=== PATIENT | female | born 1970 | race Caucasian/White ===

== ENCOUNTER 2018-11-20 16:57 | Emergency (ER) | payer MEDICAID ==
[~2018-11-20] VITALS: Ht 170.2 cm; Wt 63.5 kg
--- NOTE | 2018-11-20 17:07 | NUR ---
at bedside to see patient.
--- NOTE | 2018-11-20 18:50 | NUR ---
DCD instructions given to pt. pt. left room AAOx4. Vitals signs stable.
== END 2018-11-20 18:56 | disposition home or self-care (01) ==
LOC: ER 16:57
DX: K04.7 Periapical abscess without sinus (principal); M79.621 Pain in right upper arm; F17.200 Nicotine dependence, unspecified, uncomplicated; Z88.0 Allergy status to penicillin; Z88.8 Allergy status to other drugs, medicaments and biological substances; X58.XXXA Exposure to other specified factors, initial encounter; Y93.89 Activity, other specified; Y92.89 Other specified places as the place of occurrence of the external cause; Y99.8 Other external cause status
CPT/HCPCS: 73060; A4663

== ENCOUNTER 2018-12-31 05:38 | Emergency (ER) | payer MEDICAID ==
[~2018-12-31] VITALS: Ht 167.6 cm; Wt 60.3 kg
[2018-12-31] MEDS ORDERED: ONDANSETRON ODT 4 MG TAB.RAPDIS ONE (06:09)
[2018-12-31] MEDS ORDERED: HYDROCODONE/APAP 10-325 MG TABLET ONE (06:09)
[2018-12-31] MEDS ORDERED: PENICILLIN G BENZATHINE 2.4 MMU/4 ML DISP.SYRIN IM ONE ×2 (06:10→06:15)
[2018-12-31] MEDS ORDERED: HYDROCODONE/APAP 10-325 MG TABLET PO ONE (06:15)
[2018-12-31] MEDS ORDERED: ONDANSETRON ODT 4 MG TAB.RAPDIS SL ONE (06:15)
--- NOTE | 2018-12-31 06:22 | NUR ---
Patient discharged to home in stable conditon. Written and verbal after care instructions given. Patient verbalizes understanding of instructions. Pt ambulated out of ER in stable gait. No acute distress noted. All belongings w pt. VSS. Pt's to drive pt home.
[2018-12-31 06:23] VITALS: BP 119/74
== END 2018-12-31 06:23 | disposition home or self-care (01) ==
LOC: ER 05:40
DX: K08.89 Other specified disorders of teeth and supporting structures (principal); F17.290 Nicotine dependence, other tobacco product, uncomplicated; Z71.6 Tobacco abuse counseling; Z88.8 Allergy status to other drugs, medicaments and biological substances
CPT/HCPCS: A4663; Q0162

== ENCOUNTER 2019-01-16 09:51 | Emergency (ER) | payer MEDICAID ==
[~2019-01-16] VITALS: Ht 165.1 cm; Wt 61.2 kg
[2019-01-16] MEDS ORDERED: ONDANSETRON ODT 4 MG TAB.RAPDIS SL ONE (10:15)
[2019-01-16] MEDS ORDERED: HYDROCODONE/APAP 10-325 MG TABLET PO ONE (10:15)
[2019-01-16] MEDS ORDERED: HYDROCODONE/APAP 10-325 MG TABLET ONE (10:18)
[2019-01-16] MEDS ORDERED: ONDANSETRON 4 MG/2 ML VIAL ONE (10:19)
[2019-01-16] MEDS ORDERED: ONDANSETRON ODT 4 MG TAB.RAPDIS ONE (10:20)
--- NOTE | 2019-01-16 10:25 | NUR ---
PT WAS EVALUATED BY DR PARNELL. PT WAS D/C'd TO HOME. D/C INSTRUCTIONS GIVEN TO THE PT.
[2019-01-16 10:27] VITALS: BP 131/78
[2019-01-17] MEDS ORDERED: HYDROCODONE-ACETAMIN 5-325 MG (01:39)
[2019-01-17] MEDS ORDERED: [UNRECOGNIZED DRUG - REMARK] (01:39)
== END 2019-01-16 10:30 | disposition home or self-care (01) ==
LOC: ER 09:51
DX: K08.89 Other specified disorders of teeth and supporting structures (principal); L73.9 Follicular disorder, unspecified; L03.113 Cellulitis of right upper limb; F17.200 Nicotine dependence, unspecified, uncomplicated; Z88.8 Allergy status to other drugs, medicaments and biological substances
CPT/HCPCS: A4663; J2405; Q0162

== ENCOUNTER 2019-01-17 01:29 | Inpatient (IN) | payer MEDICAID ==
[~2019-01-17] VITALS: Ht 165.1 cm; Wt 64.0 kg
[2019-01-17] MEDS ORDERED: [UNRECOGNIZED DRUG - REMARK] (01:39)
[2019-01-17] MEDS ORDERED: HYDROCODONE-ACETAMIN 5-325 MG (01:39)
[2019-01-17] MEDS ORDERED: LORAZEPAM 2 MG/1 ML VIAL IV ONE (02:00)
[2019-01-17] MEDS ORDERED: ONDANSETRON 4 MG/2 ML VIAL IV ONE (02:00)
[2019-01-17] MEDS ORDERED: VANCOMYCIN IV 1,000 MG in IV DEXTROSE 5% 250 ML IV ONE (02:00)
[2019-01-17] MEDS ORDERED: SODIUM BICARBONATE 4.2 % (NEUT) 5 ML VIAL TP ONE (02:00)
[2019-01-17] MEDS ORDERED: LIDOCAINE 1%-EPI 1:100,000 20 ML VIAL TP ONE (02:00)
[2019-01-17] MEDS ORDERED: HYDROMORPHONE 1 MG/1 ML DISP.SYRIN IV ONE (02:00)
[2019-01-17] MEDS ORDERED: LORAZEPAM 2 MG/1 ML VIAL ONE (02:26)
[2019-01-17] MEDS ORDERED: HYDROMORPHONE 1 MG/1 ML DISP.SYRIN ONE (02:26)
[2019-01-17] MEDS ORDERED: ONDANSETRON 4 MG/2 ML VIAL ONE (02:26)
[2019-01-17] MEDS ORDERED: VANCOMYCIN IV 200 ML ONE (02:37)
[2019-01-17 02:44] LABS: BASOPHILS # (AUTO) 0.1 K/uL (0.0-8.0); BASOPHILS % (AUTO) 0.5 % (0.0-2.0); EOSINOPHILS # (AUTO) 0.3 K/uL (0.0-0.7); EOSINOPHILS % (AUTO) 2.2 % (0.0-7.0); HEMATOCRIT 40.8 % (31.2-41.9); HEMOGLOBIN 13.6 g/dL (10.9-14.3); LYMPHOCYTES # (AUTO) 1.5 K/uL (20.0-40.0); LYMPHOCYTES % (AUTO) 12.6 % (20.5-51.5); MEAN CORPUSCULAR HEMOGLOBIN 29.6 uug (24.7-32.8); MEAN CORPUSCULAR HGB CONC 33 g/dL (32.3-35.6); MEAN CORPUSCULAR VOLUME 88.6 fL (75.5-95.3); MONOCYTES # (AUTO) 0.6 K/uL (2.0-10.0); MONOCYTES % (AUTO) 5.3 % (0.0-11.0); NEUTROPHILS # (AUTO) 9.5 K/uL (1.8-8.9); NEUTROPHILS % (AUTO) 79.4 % (38.5-71.5); PLATELET COUNT (AUTO) 193 K/uL (179-408)
--- NOTE | 2019-01-17 02:51 | NUR ---
Paged [employer] panel labor relations manager. Waitng for Viral Monte DOWEL MAKER to call back
--- NOTE | 2019-01-17 02:59 | NUR ---
Dr Amos speaking with Viral Monte NP
[2019-01-17] MEDS ORDERED: HYDROMORPHONE 1 MG/1 ML DISP.SYRIN IV PRN (03:00)
[2019-01-17] MEDS ORDERED: ONDANSETRON 4 MG/2 ML VIAL IV PRN (03:00)
[2019-01-17] MEDS ORDERED: ACETAMINOPHEN 325 MG TABLET PO PRN (03:00)
[2019-01-17] MEDS ORDERED: MAGNESIUM HYDROXIDE 30 ML LIQUID UDC PO PRN (03:00)
[2019-01-17] MEDS ORDERED: HYDROCODONE/APAP 10-325 MG TABLET PO PRN (03:00)
[2019-01-17 03:08] LABS: BILIRUBIN,TOTAL 0.5 mg/dL (0.2-1.0); CREATININE 0.9 mg/dL (0.6-1.3); POTASSIUM 3.5 mmol/L (3.5-5.1); TOTAL PROTEIN, SERUM 6.3 g/dL (6.4-8.2)
--- NOTE | 2019-01-17 03:18 | NUR ---
Correction Ativan IV, Zofran IV, and Dilaudid IV given via LHand 20G IV site.
--- NOTE | 2019-01-17 03:18 | NUR ---
Report given to Mira
--- NOTE | 2019-01-17 03:39 | NUR ---
RECEIVED REPORT FROM ARSALAN IN ER
[2019-01-17 03:45] VITALS: BP 100/69
--- NOTE | 2019-01-17 04:00 | NUR ---
Patient transfered to MT in stable condition.
--- NOTE | 2019-01-17 04:30 | NUR ---
RECEIVED PATIENT FROM ER. UNABLE TO OBTAIN ANY HISTORY INFORMATION DUE TO MEDICATIONS PATIENT RECEIVED FOR AXILLARY CYST DRAINAGE PERFORMED IN ED. PATIENTS VS ARE WNL AND PATIENT IS STABLE. BEGAN IV NS @ 75 ML/HR ORDERED. CALL LIGHT WITHIN REACH AT ALL TIMES. 2 SIDE RAILS UP AND LOCKED. BED IN LOW POSITION AND BRAKE IS LOCKED. WILL CONTINUE TO MONITOR.
[2019-01-17] MEDS: IV NS 1000 ML 1,000 ML IV PRN ×2 (04:34→18:17)
[2019-01-17] MEDS: PANTOPRAZOLE SODIUM 40 MG TABLET.DR PO SCH (06:34)
--- NOTE | 2019-01-17 06:35 | NUR ---
PATIENT IS EXTREMELY LETHARGIC AND UNABLE TO TAKE SCHEDULED PROTONIX.
[2019-01-17 07:46] VITALS: BP 101/65
--- NOTE | 2019-01-17 10:01 | NUR ---
Nurse Notes: medications given in emergency room, not assessed on night shigt, patient arrived to floor around 3 am, medications given in ER was zofran, dilaudid and ativan.
[2019-01-17 11:32] VITALS: BP 104/62
--- NOTE | 2019-01-17 13:22 | NUR ---
Clinical Pharmacy Note: Vancomycin Dosing per Pharmacy Subjective: Vancomycin IV to start on this 48 yo female patient for abscess/cellulitis of right axilla. Objective: BUN 12/Scr 0.9 WBC 12 Temperature 98 ht 165 cm wt 6.39 kg Assessment/Plan: Patient received vanco 1gm IVPB x1 today at 0300. Will start vancomycin 1000mg IVPB Q15hr for a predicted vancomycin steady state trough level of 16 mcg/ml. 2nd dose today at 1800. Will draw a vancomycin trough level prior to the 4th dose of vancomycin (not ordered yet). Will monitor renal function and adjust vancomycin dose, if needed, should renal function change significantly. Will follow daily.
--- NOTE | 2019-01-17 13:30 | NUR ---
Nurse Notes: patient remains sleeping, in no respiratory distress, no request for pain medications, IV is infusing continuously.
[2019-01-17 15:49] VITALS: BP 99/68
[2019-01-17] MEDS: HYDROMORPHONE 1 MG/1 ML DISP.SYRIN IV PRN ×2 (18:32→22:12)
--- NOTE | 2019-01-17 18:32 | NUR ---
Nurse Notes: Patient awakened and asking for pain medication, Dilaudid .5 mg IV was given, patient felt some nausea coming on, patient then went back to sleeping. Zofran IV was not given.
[2019-01-17] MEDS: VANCOMYCIN IV 1 G in PREMIXED 0 EACH IV SCH (18:38)
[2019-01-17 18:45] VITALS: BP 94/66
--- NOTE | 2019-01-17 20:00 | NUR ---
RECEIVED PATIENT ASLEEP IN BED. IVF INFUSING WELL TO LEFT HAND #20 GAUGE. VSS. NO RESP. DISTRESS NOTED. NO S/S OF PAIN OR DISCOMFORT. NO FACIAL GRIMACE NOTED. CALL LIGHT IN REACH. ALL NEEDS ATTENDED. WILL CONTINUE TO MONITOR AND ASSESS.
[2019-01-17 20:11] VITALS: BP 98/59
[2019-01-17] MEDS: TEMAZEPAM 15 MG CAPSULE PO SCH (20:54)
--- NOTE | 2019-01-17 21:00 | NUR ---
PATIENT ASLEEP. RESTORIL NOT GIVEN. PATIENT EASILY AROUSABLE BUT QUICKLY FALLS BACK ASLEEP. WILL CONTINUE TO MONITOR AND ASSESS.
[2019-01-17] MEDS ORDERED: PIPERACILLIN/TAZOBACTAM/D5W 100 ML IV ONE (21:35)
[2019-01-17] MEDS: PIPERACILLIN/TAZOBACTAM/D5W 3.375 G in PREMIXED 1 EACH IV SCH (22:02)
[2019-01-18] MEDS: HYDROMORPHONE 1 MG/1 ML DISP.SYRIN IV PRN ×4 (02:25→19:38)
[2019-01-18 04:00] VITALS: BP 99/56
[2019-01-18] MEDS: PIPERACILLIN/TAZOBACTAM/D5W 3.375 G in PREMIXED 1 EACH IV SCH ×3 (05:25→22:40)
[2019-01-18] MEDS ORDERED: HYDROMORPHONE 1 MG/1 ML DISP.SYRIN ONE (06:04)
[2019-01-18] MEDS: PANTOPRAZOLE SODIUM 40 MG TABLET.DR PO SCH (06:18)
--- NOTE | 2019-01-18 06:25 | NUR ---
PATIENT PULLED OUT IV. NEW IV HEPLOCK STARTED TO LEFT FA #20 GAUGE. PATIENT C/O PAIN IN RIGHT AXILLARY, GIVEN DILAUDID 0.5MG IV PRN PER RN. SLEPT WELL. IVF INFUSING WELL. CALL LIGHT IN REACH. ALL NEEDS ATTENDED. WILL CONTINUE TO MONITOR AND ASSESS.
[2019-01-18 06:50] LABS: BASOPHILS # (AUTO) 0.1 K/uL (0.0-8.0); EOSINOPHILS # (AUTO) 0.4 K/uL (0.0-0.7); EOSINOPHILS % (AUTO) 3.9 % (0.0-7.0); HEMATOCRIT 37.5 % (31.2-41.9); HEMOGLOBIN 12.6 g/dL (10.9-14.3); LYMPHOCYTES # (AUTO) 2.2 K/uL (20.0-40.0); LYMPHOCYTES % (AUTO) 22.2 % (20.5-51.5); MEAN CORPUSCULAR HEMOGLOBIN 29.8 uug (24.7-32.8); MEAN CORPUSCULAR HGB CONC 34 g/dL (32.3-35.6); MEAN CORPUSCULAR VOLUME 88.9 fL (75.5-95.3); MONOCYTES # (AUTO) 0.7 K/uL (2.0-10.0); MONOCYTES % (AUTO) 7.3 % (0.0-11.0); NEUTROPHILS # (AUTO) 6.5 K/uL (1.8-8.9); NEUTROPHILS % (AUTO) 65.6 % (38.5-71.5); PLATELET COUNT (AUTO) 169 K/uL (179-408); RED BLOOD CELL COUNT(AUTO) 4.22 MIL/uL (3.63-4.92); WHITE BLOOD COUNT (AUTO) 9.9 K/uL (3.8-11.8)
[2019-01-18 07:05] LABS: CREATININE 0.7 mg/dL (0.6-1.3); MAGNESIUM 1.8 mg/dL (1.8-2.4); PHOSPHOROUS 2.8 mg/dL (2.5-4.9); POTASSIUM 3.6 mmol/L (3.5-5.1)
--- NOTE | 2019-01-18 07:15 | NUR ---
RECEIVED PATIENT ON BED, ASLEEP NO ACUTE DISTRESS NOTED. IV ACCESS ON LEFT FOREARM #20 INTACT AND PATENT RUNNING NS @ 75CC/HR INFUSING WELL. RUE KEPT ELEVATED. PATIENT APPEARS COMFORTABLE AT THIS TIME. CALL LIGHT WITHIN REACH. WILL CONTINUE TO MONITOR CLOSELY.
[2019-01-18] MEDS: VANCOMYCIN IV 1 G in PREMIXED 0 EACH IV SCH ×2 (08:43→20:43)
--- NOTE | 2019-01-18 09:58 | NUR ---
PATIENT WILL BE BOTH ON VANCOMYCIN AND ZOSYN, WHICH ARE NOT COMPATIBLE, ADVISED TO INSERT ANOTHER IV LINE, PER [facility] PHARMACIST. INSERTED ANOTHER IV SITE ON LEFT FOREARM #22, SALINE LOCKED, GOOD VENOUS RETURN NOTED. WILL CONTINUE TO MONITOR CLOSELY.
[2019-01-18] MEDS: IV NS 1000 ML 1,000 ML IV PRN (09:59)
--- NOTE | 2019-01-18 10:00 | NUR ---
APPLIED WARM COMPRESS AND KEPT RIGHT UPPER ARM ELEVATED, ORDERED. WILL CONTINUE TO MONITOR CLOSELY.
[2019-01-18 11:40] VITALS: BP 94/57
--- NOTE | 2019-01-18 12:52 | NUR ---
Clinical Pharmacy Note: Vancomycin Dosing per Pharmacy Subjective: Vancomycin IV to continue on this 48 yo female patient for abscess/cellulitis of right axilla. Objective: BUN 11/Scr 0.7 WBC 9.9 Temperature 98.1 ht 165 cm wt 6.39 kg Assessment/Plan: Since srcr decreased, will change dose to vancomycin 1000mg IVPB Q12hr for a predicted vancomycin steady state trough level of 16 mcg/ml. 2nd dose today at 2100. Will draw a vancomycin trough level prior to the 4th dose of vancomycin (not ordered yet). Will monitor renal function and adjust vancomycin dose, if needed, should renal function change significantly. Will follow daily.
--- NOTE | 2019-01-18 12:56 | NUR ---
WOUND CARE CONSULT: PT PRESENTS WITH RT AXILLA PACKING STRIP, S/P I&D IN E.R. RECOMMEND SURGICAL FOLLOWUP. PT REFUSED TO HAVE PACKING REMOVED DURING CONSULT. RECOMMENDATIONS MADE FOR WOUND CARE AND SKIN PROTECTION. DISCUSSED WITH NURSING STAFF. WILL SEE PRN. Addendum: 01/18/19 at 1258 by SRAVANTHI HINDS RN Amended: Links added.
--- NOTE | 2019-01-18 15:19 | NUR ---
PATIENT REFUSED WOUND TREATMENT ON RIGHT AXILLARY, STATED "NO, I DON'T WANT YOU TO PULL THE STRING OUT, I WANT THE DOCTOR TO SEE ME FIRST, OR ELSE I'M GOING HOME", RN EXPLAINED TO PATIENT THAT MD IS AWARE OF CONSULT AND THAT HE DISCUSSED TREATMENT ORDERS WITH WOUND NURSE, PATIENT STILL REFUSED, ALSO REFUSED WARM COMPRESS ON RIGHT UPPER ARM. WILL CONTINUE TO MONITOR CLOSELY
[2019-01-18 20:00] VITALS: BP 93/59
--- NOTE | 2019-01-18 20:00 | NUR ---
RECEIVED PATIENT ASLEEP IN BED. EASILY AROUSABLE BUT QUICKLY FALLS BACK ASLEEP. APPEARS DROWSY. ON O2 2L NC SATING WELL. WARM COMPRESSES ORDERED TO APPLY TO RIGHT AXILIARY EVERY 2 HOURS. PATIENT REFUSING AND NON COMPLIANT, THROWS WARM WASH CLOTH ON THE FLOOR. MEAT CARVER NOTIFIED OF REFUSAL. IVF INFUSING ORDERED. CALL LIGHT IN REACH. ALL NEEDS ATTENDED, WILL CONTINUE TO MONITOR AND ASSESS.
[2019-01-18] MEDS: TEMAZEPAM 15 MG CAPSULE PO SCH (20:28)
[2019-01-19 04:35] VITALS: BP 98/64
--- NOTE | 2019-01-19 05:22 | NUR ---
PATIENT AT NURSING STATION DEMANDING TO GO OUTSIDE AND SMOKE A CIGARETTE. PATIENT INFORMED THAT THIS IS A NON-SMOKING FACILITY AND SHE IS NOT ABLE TO GO OUTSIDE AND SMOKE. CALLED DOWN TO SECURITY TO SPEAK WITH PATIENT. ROAD MIXER OPERATOR NOTIFIED.
[2019-01-19] MEDS: PIPERACILLIN/TAZOBACTAM/D5W 3.375 G in PREMIXED 1 EACH IV SCH (05:36)
[2019-01-19] MEDS: PANTOPRAZOLE SODIUM 40 MG TABLET.DR PO SCH (06:12)
--- NOTE | 2019-01-19 06:16 | NUR ---
PATIENT ASLEEP IN BED. IVF INFUSING WELL. CALL LIGHT IN REACH. ALL NEEDS ATTENDED, WILL CONTINUE TO MONITOR.
[2019-01-19] MEDS: VANCOMYCIN IV 1 G in PREMIXED 0 EACH IV SCH (09:13)
[2019-01-19] MEDS: HYDROMORPHONE 1 MG/1 ML DISP.SYRIN IV PRN (10:17)
[2019-01-19 11:14] VITALS: BP 96/58
--- NOTE | 2019-01-19 11:25 | NUR ---
PATIENT LEFT AGAINS MEDICAL ADVISE, IV ACCESS, ID BAND REMOVED, AMA FORM IS SIGNED
--- NOTE | 2019-01-19 12:49 | NUR ---
Clinical Pharmacy Note: Vancomycin Dosing per Pharmacy Subjective: Vancomycin IV to continue on this 48 yo female patient for abscess/cellulitis of right axilla. Objective: BUN 11/Scr 0.7(/3) WBC 9.9(/) Temperature 98.2 ht 165 cm wt 6.39 kg Assessment/Plan: Will continue vancomycin 1000mg IVPB Q12hr for a predicted vancomycin steady state trough level of 16 mcg/ml. 3rd dose given today at 0900. Will draw a vancomycin trough level prior to the 4th dose of vancomycin (ordered for [facility] at 2030-will endorse nurse to hold for over 20). Will monitor renal function and adjust vancomycin dose, if needed, should renal function change significantly. Will follow daily.
== END 2019-01-19 11:40 | disposition left against medical advice (07) | DRG 720 ==
LOC: ER 02:09 → MEDSURG3 03:24
PROVIDERS: ADMIT Nurse Practitioner Acute Care; ATTEND Internal Medicine
PROC: 0J9D3ZZ Drainage of Right Upper Arm Subcutaneous Tissue and Fascia, Percutaneous Approach (ICD-10-PCS; principal; 2019-01-17)
DX: A41.9 Sepsis, unspecified organism (principal); F15.10 Other stimulant abuse, uncomplicated; L03.111 Cellulitis of right axilla; L02.411 Cutaneous abscess of right axilla; F17.210 Nicotine dependence, cigarettes, uncomplicated; B95.62 Methicillin resistant Staphylococcus aureus infection as the cause of diseases classified elsewhere; R73.9 Hyperglycemia, unspecified; Z98.82 Breast implant status; Z91.19 Patient's noncompliance with other medical treatment and regimen
CPT/HCPCS: 36415; 71045; 83550; 83735; 84100; 85025; 85610; 87040; 87070; 87077; A4217; A4663; G0378; J1170; J2060; J2405; J2543; J3370; J3490; J7030

== ENCOUNTER 2019-02-25 08:51 | Emergency (ER) | payer MEDICAID, OTHER ==
[~2019-02-25] VITALS: Ht 167.6 cm; Wt 59.0 kg
--- NOTE | 2019-02-25 09:12 | NUR ---
seen by Dr Castro
--- NOTE | 2019-02-25 09:20 | NUR ---
[facility] for pain medicine and antibiotic given and signed by patient. patient requested lab results from previous visit. printed , reviewd by MD and given to patient as well. patient requested to talk to MD before dc. dr nelson at the [facility].
[2019-02-25] MEDS ORDERED: AZITHROMYCIN 250 MG TABLET ONE (09:29)
[2019-02-25] MEDS ORDERED: CEFTRIAXONE 500 MG VIAL ONE (09:29)
[2019-02-25] MEDS ORDERED: AZITHROMYCIN 250 MG TABLET PO ONE (09:30)
[2019-02-25] MEDS ORDERED: CEFTRIAXONE 500 MG VIAL IM ONE (09:30)
[2019-02-25] MEDS ORDERED: LIDOCAINE HCL 1% 20 ML VIAL ONE (09:35)
--- NOTE | 2019-02-25 09:47 | NUR ---
zithromax given po and rocephin given IM
[2019-02-25 09:50] VITALS: BP 114/78
--- NOTE | 2019-02-25 09:59 | NUR ---
zofran given po for nausea, no vomiting
[2019-02-25] MEDS ORDERED: ONDANSETRON HCL 4 MG TABLET ONE (10:00)
[2019-02-25] MEDS ORDERED: ONDANSETRON ODT 4 MG TAB.RAPDIS SL ONE (10:00)
== END 2019-02-25 10:00 | disposition home or self-care (01) ==
LOC: ER 08:51
DX: K04.7 Periapical abscess without sinus (principal); F17.200 Nicotine dependence, unspecified, uncomplicated; Z88.8 Allergy status to other drugs, medicaments and biological substances
CPT/HCPCS: 96372; 99283; J0696; J3490; A4663; Q0144; Q0162

== ENCOUNTER 2019-05-24 12:00 | Emergency (ER) | payer OTHER ==
[~2019-05-24] VITALS: Ht 167.6 cm; Wt 59.0 kg
--- NOTE | 2019-05-24 12:10 | NUR ---
Patient says, "I dont have a dentist." Patient frequently visits our ER department for toothache/dental pains.
--- NOTE | 2019-05-24 12:36 | NUR ---
Patient is waiting for the U/S and also for this patient to provide urine sample.
--- NOTE | 2019-05-24 12:45 | NUR ---
Patient requested for hospital panty/underwear. Hospital-provided mesh panty & sanitary pad provided.
--- NOTE | 2019-05-24 13:51 | NUR ---
Patient discharged to home in stable conditon. Written and verbal after care instructions given. Patient verbalizes understanding of instructions.
== END 2019-05-24 13:52 | disposition home or self-care (01) ==
LOC: ER 12:00
DX: N76.0 Acute vaginitis (principal); K08.89 Other specified disorders of teeth and supporting structures; F17.200 Nicotine dependence, unspecified, uncomplicated; Z88.8 Allergy status to other drugs, medicaments and biological substances
CPT/HCPCS: 76856; 87210; A4663

== ENCOUNTER 2020-03-11 06:57 | Emergency (ER) | payer OTHER ==
[~2020-03-11] VITALS: Ht 167.6 cm; Wt 59.0 kg
[2020-03-11] MEDS ORDERED: CLINDAMYCIN (07:22)
--- NOTE | 2020-03-11 07:31 | NUR ---
PATIENT WAS SEEN BY . DC, RX AND FOLLOW UP INSTRUCTIONS GIVEN AND EXPLAINED TO PATIENT WHO STATES SHE UNDERSTANDS ALL INSTRUCTIONS INCLUDING NARCOTIC PRECAUTIONS.
== END 2020-03-11 07:34 | disposition home or self-care (01) ==
LOC: ER 07:03
DX: K08.89 Other specified disorders of teeth and supporting structures (principal); K02.9 Dental caries, unspecified; F17.200 Nicotine dependence, unspecified, uncomplicated
CPT/HCPCS: A4663

== ENCOUNTER 2020-09-09 10:39 | Emergency (ER) | payer OTHER ==
[~2020-09-09] VITALS: Ht 167.6 cm; Wt 63.5 kg
[~2020-09-09 10:39] MED LIST: CLINDAMYCIN
[2020-09-09] MEDS ORDERED: CEFTRIAXONE 500 MG VIAL IM ONE (11:15)
[2020-09-09] MEDS ORDERED: LIDOCAINE HCL 1% 20 ML VIAL IJ ONE (11:15)
[2020-09-09] MEDS ORDERED: DOXYCYCLINE HYCLATE 100 MG TABLET PO ONE (11:15)
[2020-09-09 11:19] LABS: *BILIRUBIN,URIN NEGATIVE (NEGATIVE); *BLOOD, URINE 2+ (NEGATIVE); *CLARITY,URINE SLIGHTLY CLOUDY (CLEAR); *COLOR,URINE YELLOW (YELLOW); *KETONES,URINE NEGATIVE (NEGATIVE); *UROBILINOGEN,URINE 0.2 E.U./dl (NORMAL); LEUKOCYTE ESTERASE ,URINE 2+ (NEGATIVE); NITRITE, URINE NEGATIVE (NEGATIVE); UGLUCOSE NEGATIVE (NEGATIVE)
[2020-09-09 11:28] LABS: *URINE HCG, QUAL NEG (NEGATIVE)
[2020-09-09] MEDS ORDERED: CEFTRIAXONE 500 MG VIAL ONE (11:38)
[2020-09-09] MEDS ORDERED: DOXYCYCLINE HYCLATE 100 MG TABLET ONE (11:38)
[2020-09-09] MEDS ORDERED: LIDOCAINE HCL 1% 20 ML VIAL ONE (11:38)
--- NOTE | 2020-09-09 11:59 | NUR ---
Patient was place back in waiting room. No s/s any distress. Normal steady gait.
--- NOTE | 2020-09-09 12:12 | NUR ---
DR ALAN SPOKE WITH PATIENT MADE HER AWARE OF TEST RESULTS WILL BE DC HOME.
[2020-09-09 12:13] VITALS: BP 118/72
--- NOTE | 2020-09-09 12:13 | NUR ---
Patient discharged to home in stable condition. Written and verbal after care instructions given. Patient verbalizes understanding of instructions. Stressed follow up or return to ER for worsening s/s.
[2020-09-09 13:14] LABS: URINE AMORPHOUS URATE NONE SEEN /HPF
[2020-09-09 14:15] LABS: BACTERIA,URINE FEW /HPF (NONE SEEN); SQUAMOUS EPITHELIAL CELL,UR FEW /HPF (NONE SEEN); WBC,URINE TNTC /HPF (0-3)
== END 2020-09-09 13:02 | disposition home or self-care (01) ==
LOC: ER 10:39
DX: N39.0 Urinary tract infection, site not specified (principal); H10.9 Unspecified conjunctivitis; Z98.82 Breast implant status
CPT/HCPCS: 81001; 84703; 87077; 87081; 87086; 87491; 96372; 99283; J0696; J3490; A4663

== ENCOUNTER 2020-10-18 10:39 | Emergency (ER) | payer OTHER ==
[~2020-10-18] VITALS: Ht 167.6 cm; Wt 63.5 kg
[2020-10-18] MEDS ORDERED: DOXY100C41 PO (10:56)
[2020-10-18] MEDS ORDERED: METR-147 PO (10:56)
[2020-10-18] MEDS ORDERED: CEFTRIAXONE 500 MG VIAL IM ONE (11:00)
[2020-10-18] MEDS ORDERED: LIDOCAINE HCL 1% 20 ML VIAL ONE (11:03)
[2020-10-18 11:04] LABS: *URINE HCG, QUAL NEG (NEGATIVE)
[2020-10-18] MEDS ORDERED: CEFTRIAXONE 500 MG VIAL ONE (11:04)
[2020-10-18 11:07] LABS: *BILIRUBIN,URIN NEGATIVE (NEGATIVE); *BLOOD, URINE 1+ (NEGATIVE); *CLARITY,URINE SLIGHTLY CLOUDY (CLEAR); *COLOR,URINE YELLOW (YELLOW); *KETONES,URINE NEGATIVE (NEGATIVE); *UROBILINOGEN,URINE 0.2 E.U./dl (NORMAL); LEUKOCYTE ESTERASE ,URINE 3+ (NEGATIVE); NITRITE, URINE NEGATIVE (NEGATIVE); PH,URINE 5.5 (5.0-8.0); UGLUCOSE NEGATIVE (NEGATIVE)
--- NOTE | 2020-10-18 11:20 | NUR ---
Patient discharged to home in stable condition. Written and verbal after care instructions given. Patient verbalizes understanding of instructions. Stressed follow up or return to ER for worsening s/s.pt tolerated rocephin, no reaction.
[2020-10-18 16:53] LABS: BACTERIA,URINE MANY /HPF (NONE SEEN); SQUAMOUS EPITHELIAL CELL,UR MANY /HPF (NONE SEEN); WBC,URINE 20-50 /HPF (0-3)
[2020-10-20 16:40] LABS: *GC NAA NEGATIVE; *TRIC.VAG. NAA POSITIVE ABNORMAL
== END 2020-10-18 11:24 | disposition home or self-care (01) ==
LOC: ER 10:39
DX: N76.0 Acute vaginitis (principal); B96.89 Other specified bacterial agents as the cause of diseases classified elsewhere; Z86.19 Personal history of other infectious and parasitic diseases; Z20.2 Contact with and (suspected) exposure to infections with a predominantly sexual mode of transmission; Z98.82 Breast implant status; Z87.440 Personal history of urinary (tract) infections
CPT/HCPCS: 81001; 84703; 87086; 87491; 96372; 99283; J0696; J3490; A4663

== ENCOUNTER 2020-10-29 01:34 | Emergency (ER) | payer OTHER ==
[~2020-10-29] VITALS: Ht 167.6 cm; Wt 639.6 kg
[~2020-10-29 01:34] MED LIST changes: +DOXY100C41 PO; +METR-147 PO
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
--- NOTE | 2020-10-29 02:04 | NUR ---
Dr. Cheng at bedside for MSE.
[2020-10-29] MEDS ORDERED: OXYCODONE/APAP 5-325 MG TABLET PO ONE (02:15)
[2020-10-29] MEDS ORDERED: GENTAMICIN SULFATE 0.1% OINT 15 GM TUBE TP ONE (02:15)
[2020-10-29] MEDS ORDERED: TDAP DIPH,PERTUSS,TET VAC/PF 0.5 ML DISP.SYRIN IM ONE ×2 (02:15→02:24)
[2020-10-29] MEDS ORDERED: SILV50CR32 TP (02:16)
[2020-10-29] MEDS ORDERED: OXYC-117 PO (02:18)
[2020-10-29] MEDS ORDERED: OXYCODONE/APAP 5-325 MG TABLET ONE (02:24)
[2020-10-29] MEDS ORDERED: GENTAMICIN SULFATE OPHT OINT 3.5 GM TUBE ONE (02:26)
--- NOTE | 2020-10-29 02:30 | NUR ---
Patient discharged to home in stable condition. Written and verbal after care instructions given. Patient verbalizes understanding of instructions. Stressed follow up or return to ER for worsening s/s. Pt ambulated out of the ER with steady gait. All belongings with pt.
[2020-10-29 02:34] VITALS: BP 130/94
== END 2020-10-29 02:30 | disposition home or self-care (01) ==
LOC: ER 01:39
DX: T20.29XA Burn of second degree of multiple sites of head, face, and neck, initial encounter (principal); T31.0 Burns involving less than 10% of body surface; X12.XXXA Contact with other hot fluids, initial encounter; Y93.89 Activity, other specified; Y92.89 Other specified places as the place of occurrence of the external cause
CPT/HCPCS: 90715; A4663

== ENCOUNTER 2021-04-13 19:15 | Emergency (ER) | payer OTHER ==
[~2021-04-13] VITALS: Ht 167.6 cm; Wt 59.0 kg
[~2021-04-13 19:15] MED LIST changes: +DOXY-326 PO; -DOXY100C41 PO; +OXYC-117 PO; +SILV50CR32 TP
--- NOTE | 2021-04-13 19:44 | NUR ---
MD Benjamin in room to do MSE.
[2021-04-13 19:48] LABS: *BILIRUBIN,URIN NEGATIVE (NEGATIVE); *BLOOD, URINE 1+ (NEGATIVE); *CLARITY,URINE CLEAR (CLEAR); *COLOR,URINE YELLOW (YELLOW); *KETONES,URINE NEGATIVE (NEGATIVE); *UROBILINOGEN,URINE 0.2 E.U./dl (NORMAL); LEUKOCYTE ESTERASE ,URINE 2+ (NEGATIVE); NITRITE, URINE POSITIVE (NEGATIVE); PH,URINE 5.5 (5.0-8.0); UGLUCOSE NEGATIVE (NEGATIVE)
[2021-04-13 19:49] LABS: *URINE HCG, QUAL NEGATIVE (NEGATIVE)
[2021-04-13 20:11] LABS: WBC,URINE 20-50 /HPF (0-3)
[2021-04-13 20:12] LABS: BACTERIA,URINE MODERATE /HPF (NONE SEEN); SQUAMOUS EPITHELIAL CELL,UR FEW /HPF (NONE SEEN)
[2021-04-13] MEDS ORDERED: CEphaleXIN 250 MG CAPSULE PO ONE (20:15)
[2021-04-13] MEDS ORDERED: PHENAZOPYRIDINE HCL 100 MG TABLET PO ONE (20:15)
--- NOTE | 2021-04-13 20:15 | NUR ---
Patient resting upright in room, no acute distress noted.
[2021-04-13] MEDS ORDERED: PHEN-895 PO (20:20)
[2021-04-13] MEDS ORDERED: CEPH250C PO (20:20)
[2021-04-13] MEDS ORDERED: PHENAZOPYRIDINE HCL 100 MG TABLET ONE (20:28)
[2021-04-13] MEDS ORDERED: CEphaleXIN 250 MG CAPSULE ONE (20:28)
[2021-04-13] MEDS ORDERED: CLIN40CR9 VG (20:39)
[2021-04-13] MEDS ORDERED: AZITHROMYCIN 250 MG TABLET PO ONE (20:45)
[2021-04-13] MEDS ORDERED: CEFTRIAXONE 500 MG VIAL IM ONE (20:45)
[2021-04-13] MEDS ORDERED: LIDOCAINE HCL 1% 20 ML VIAL ONE (20:47)
[2021-04-13] MEDS ORDERED: CEFTRIAXONE 500 MG VIAL ONE (20:47)
[2021-04-13] MEDS ORDERED: AZITHROMYCIN 250 MG TABLET ONE (20:49)
[2021-04-13 20:55] VITALS: BP 112/78
--- NOTE | 2021-04-13 20:55 | NUR ---
Patient discharged to home in stable condition. Written and verbal after care instructions given. Patient verbalizes understanding of instructions. Stressed follow up or return to ER for worsening s/s. Patient ambulates with steady gait, Rx electronically sent by MD Benjamin to patient's preferred pharmacy, V/S stable, and left with all personal belongings.
[2021-04-15 22:06] LABS: *GC NAA Negative (Negative); *TRIC.VAG. NAA Negative (Negative)
== END 2021-04-13 20:55 | disposition home or self-care (01) ==
LOC: ER 19:17
DX: L74.0 Miliaria rubra (principal); N39.0 Urinary tract infection, site not specified; N76.0 Acute vaginitis; Z20.2 Contact with and (suspected) exposure to infections with a predominantly sexual mode of transmission
CPT/HCPCS: 81001; 84703; 87077; 87086; 87186; 87491; 96372; 99284; J0696; J3490; A4663; Q0144

== ENCOUNTER 2021-06-25 21:37 | Emergency (ER) | payer SELFPAY ==
[~2021-06-25 21:37] MED LIST changes: +CEPH250C PO; +CLIN40CR9 VG; +PHEN-895 PO
--- NOTE | 2021-06-25 21:48 | NUR ---
Patient left without being seen by ER physician.
[2021-06-26] MEDS ORDERED: FLUC150T PO (07:38)
[2021-06-26] MEDS ORDERED: METR500T PO (07:38)
== END 2021-06-25 21:50 | disposition left against medical advice (07) ==
LOC: ER 21:38
DX: Z53.21 Procedure and treatment not carried out due to patient leaving prior to being seen by health care provider (principal)

== ENCOUNTER 2021-06-26 07:17 | Emergency (ER) | payer OTHER ==
[~2021-06-26] VITALS: Ht 165.1 cm; Wt 63.5 kg
[2021-06-26] MEDS ORDERED: METR500T PO (07:38)
[2021-06-26] MEDS ORDERED: FLUC150T PO (07:38)
--- NOTE | 2021-06-26 07:42 | NUR ---
Patient was seen by . DC, Rx and follow up instructions given and explained to patient who states she understands all instructions
== END 2021-06-26 07:45 | disposition home or self-care (01) ==
LOC: ER 07:26
DX: N76.0 Acute vaginitis (principal); B96.89 Other specified bacterial agents as the cause of diseases classified elsewhere
CPT/HCPCS: A4663

== ENCOUNTER 2021-08-14 00:36 | Emergency (ER) | payer OTHER ==
[~2021-08-14] VITALS: Ht 167.6 cm; Wt 63.5 kg
[~2021-08-14 00:36] MED LIST changes: +FLUC150T PO; +METR500T PO
[2021-08-14] MEDS ORDERED: METR-147 PO (01:00)
[2021-08-14] MEDS ORDERED: CEFTRIAXONE 500 MG VIAL IM ONE (01:00)
[2021-08-14] MEDS ORDERED: METRONIDAZOLE 500 MG TABLET PO ONE (01:00)
[2021-08-14] MEDS ORDERED: CEFTRIAXONE 500 MG VIAL ONE (01:10)
[2021-08-14] MEDS ORDERED: METRONIDAZOLE 500 MG TABLET ONE (01:10)
[2021-08-14 01:11] VITALS: BP 127/80
== END 2021-08-14 01:12 | disposition home or self-care (01) ==
LOC: ER 00:40
DX: Z20.2 Contact with and (suspected) exposure to infections with a predominantly sexual mode of transmission (principal); F17.210 Nicotine dependence, cigarettes, uncomplicated
CPT/HCPCS: 96372; 99283; 99406; J0696; A4663

== ENCOUNTER 2021-09-23 22:50 | Emergency (ER) | payer SELFPAY ==
--- NOTE | 2021-09-24 00:45 | NUR ---
Patient was called to be traiged but was not present in the waiting room.
--- NOTE | 2021-09-24 01:00 | NUR ---
Patient was called to be triaged but was not present. Patient was not triaged or seen by ERMD.
== END 2021-09-24 01:00 | disposition left against medical advice (07) ==
LOC: ER 22:54
DX: Z53.21 Procedure and treatment not carried out due to patient leaving prior to being seen by health care provider (principal)

== ENCOUNTER 2021-10-13 10:15 | Emergency (ER) | payer OTHER ==
[~2021-10-13] VITALS: Ht 165.1 cm; Wt 59.0 kg
--- NOTE | 2021-10-13 10:27 | NUR ---
PT IS IN ROOM #1B. DR LIMON EVALUATED THE PT.
[2021-10-13] MEDS ORDERED: METR500T PO (10:30)
[2021-10-13] MEDS ORDERED: CEFTRIAXONE 500 MG VIAL IM ONE (10:30)
[2021-10-13] MEDS ORDERED: DOXY-326 PO (10:30)
[2021-10-13] MEDS ORDERED: DOXYCYCLINE HYCLATE 100 MG TABLET PO ONE (10:30)
[2021-10-13] MEDS ORDERED: METRONIDAZOLE 500 MG TABLET PO ONE (10:30)
[2021-10-13] MEDS ORDERED: DOXYCYCLINE HYCLATE 100 MG TABLET ONE (10:47)
[2021-10-13] MEDS ORDERED: LIDOCAINE HCL 1% 20 ML VIAL ONE (10:47)
[2021-10-13] MEDS ORDERED: METRONIDAZOLE 500 MG TABLET ONE (10:47)
[2021-10-13 10:48] VITALS: BP 128/75
[2021-10-13] MEDS ORDERED: CEFTRIAXONE 500 MG VIAL ONE (10:48)
== END 2021-10-13 10:49 | disposition home or self-care (01) ==
LOC: ER 10:15
DX: N89.8 Other specified noninflammatory disorders of vagina (principal); F17.290 Nicotine dependence, other tobacco product, uncomplicated; Z88.8 Allergy status to other drugs, medicaments and biological substances; Z91.018 Allergy to other foods; Z79.2 Long term (current) use of antibiotics; Z79.899 Other long term (current) drug therapy
CPT/HCPCS: 96372; 99283; J0696; J3490; A4663

== ENCOUNTER 2021-10-22 13:23 | Emergency (ER) | payer OTHER ==
[~2021-10-22] VITALS: Ht 167.6 cm; Wt 58.1 kg
--- NOTE | 2021-10-22 13:33 | NUR ---
Patient ambulated to with steady gait and provided a urine sample that was sent to lab
[2021-10-22 14:40] LABS: *URINE HCG, QUAL NEG (NEGATIVE)
--- NOTE | 2021-10-22 15:20 | NUR ---
DC and follow up instructions given and explained to patient who states she understands all instructions
== END 2021-10-22 15:23 | disposition home or self-care (01) ==
LOC: ER 13:23
DX: N93.8 Other specified abnormal uterine and vaginal bleeding (principal); G44.209 Tension-type headache, unspecified, not intractable; Z87.898 Personal history of other specified conditions
CPT/HCPCS: 84703; A4663

== ENCOUNTER 2021-11-10 18:20 | Emergency (ER) | payer OTHER ==
[~2021-11-10] VITALS: Ht 167.6 cm; Wt 59.0 kg
[2021-11-10 18:36] LABS: *BILIRUBIN,URIN NEGATIVE (NEGATIVE); *BLOOD, URINE 3+ (NEGATIVE); *CLARITY,URINE CLOUDY (CLEAR); *COLOR,URINE YELLOW (YELLOW); *KETONES,URINE NEGATIVE (NEGATIVE); *UROBILINOGEN,URINE 0.2 E.U./dl (NORMAL); LEUKOCYTE ESTERASE ,URINE 1+ (NEGATIVE); NITRITE, URINE NEGATIVE (NEGATIVE); UGLUCOSE NEGATIVE (NEGATIVE)
--- NOTE | 2021-11-10 18:45 | NUR ---
PT IS IN ROOM #1B. DR STEWARD EVALUATED THE PT.
[2021-11-10 18:58] LABS: *URINE HCG, QUAL NEG (NEGATIVE)
[2021-11-10] MEDS ORDERED: CEFTRIAXONE 500 MG VIAL IM ONE (19:15)
[2021-11-10] MEDS ORDERED: CEFTRIAXONE 500 MG VIAL ONE (19:27)
[2021-11-10] MEDS ORDERED: LIDOCAINE HCL 1% 20 ML VIAL ONE (19:28)
[2021-11-10] MEDS ORDERED: DOXY-326 PO (19:43)
[2021-11-10] MEDS ORDERED: NITR100C11 PO (19:43)
[2021-11-10 19:47] LABS: BACTERIA,URINE MODERATE /HPF (NONE SEEN); RBC,URINE 20-50 /HPF (0-3); SQUAMOUS EPITHELIAL CELL,UR FEW /HPF (NONE SEEN); WBC,URINE 50-80 /HPF (0-3)
[2021-11-13 21:06] LABS: *TRIC.VAG. NAA Positive (Negative)
[2021-11-13 22:06] LABS: *GC NAA Positive (Negative)
== END 2021-11-10 19:46 | disposition home or self-care (01) ==
LOC: ER 18:21
DX: N39.0 Urinary tract infection, site not specified (principal); A64 Unspecified sexually transmitted disease; F17.210 Nicotine dependence, cigarettes, uncomplicated; Z88.8 Allergy status to other drugs, medicaments and biological substances; Z91.018 Allergy to other foods; Z79.2 Long term (current) use of antibiotics; Z79.899 Other long term (current) drug therapy
CPT/HCPCS: 81001; 84703; 87086; 87491; 96372; 99283; J0696; J3490; A4663

== ENCOUNTER 2021-12-13 05:30 | Emergency (ER) | payer OTHER ==
[~2021-12-13] VITALS: Ht 170.2 cm; Wt 63.5 kg
[~2021-12-13 05:30] MED LIST changes: +NITR100C11 PO
--- NOTE | 2021-12-13 05:35 | NUR ---
Dr. Cheng at bedside for MSE.
[2021-12-13 05:55] LABS: HEMATOCRIT 42.1 % (31.2-41.9); MEAN CORPUSCULAR HEMOGLOBIN 30.6 uug (24.7-32.8); MEAN CORPUSCULAR VOLUME 91.5 fL (75.5-95.3); PLATELET COUNT (AUTO) 215 K/uL (179-408)
[2021-12-13 06:02] LABS: CREATININE 0.8 mg/dL (0.6-1.3); POTASSIUM 3.3 mmol/L (3.5-5.1)
--- NOTE | 2021-12-13 06:04 | NUR ---
Ultrasound at bedside.
[2021-12-13 06:06] LABS: *BILIRUBIN,URIN NEGATIVE (NEGATIVE); *BLOOD, URINE 2+ (NEGATIVE); *CLARITY,URINE CLOUDY (CLEAR); *COLOR,URINE YELLOW (YELLOW); *KETONES,URINE NEGATIVE (NEGATIVE); *UROBILINOGEN,URINE 0.2 E.U./dl (NORMAL); LEUKOCYTE ESTERASE ,URINE 2+ (NEGATIVE); NITRITE, URINE NEGATIVE (NEGATIVE); UGLUCOSE NEGATIVE (NEGATIVE)
[2021-12-13 06:13] LABS: RBC,URINE 20-50 /HPF (0-3); WBC,URINE TNTC /HPF (0-3)
[2021-12-13 06:14] LABS: BACTERIA,URINE MODERATE /HPF (NONE SEEN); SQUAMOUS EPITHELIAL CELL,UR MANY /HPF (NONE SEEN)
[2021-12-13] MEDS ORDERED: LEVO500T90 PO (06:42)
[2021-12-13] MEDS ORDERED: levoFLOXacin 500 MG TABLET PO ONE (06:45)
[2021-12-13] MEDS ORDERED: levoFLOXacin 500 MG TABLET ONE (06:51)
[2021-12-13] MEDS ORDERED: METR500T PO (06:53)
[2021-12-13 06:58] VITALS: BP 127/76
== END 2021-12-13 06:59 | disposition home or self-care (01) ==
LOC: ER 05:34
DX: N93.9 Abnormal uterine and vaginal bleeding, unspecified (principal); N39.0 Urinary tract infection, site not specified; N76.0 Acute vaginitis; R00.0 Tachycardia, unspecified; Z88.8 Allergy status to other drugs, medicaments and biological substances
CPT/HCPCS: 36415; 76856; 85025; 87086; A4663

== ENCOUNTER 2022-02-28 04:03 | Emergency (ER) | payer OTHER ==
[~2022-02-28] VITALS: Ht 170.2 cm; Wt 63.5 kg
[~2022-02-28 04:03] MED LIST changes: +LEVO500T90 PO
--- NOTE | 2022-02-28 04:25 | NUR ---
Dr. Cheng at bedside for MSE.
[2022-02-28] MEDS ORDERED: METRONIDAZOLE 250 MG TABLET ONE (04:37)
[2022-02-28] MEDS ORDERED: OXYCODONE/APAP 5-325 MG TABLET ONE (04:37)
[2022-02-28] MEDS ORDERED: CLINDAMYCIN HCL 300 MG CAPSULE ONE (04:38)
[2022-02-28] MEDS ORDERED: METR500T PO (04:39)
[2022-02-28] MEDS ORDERED: CLIN300C3 PO (04:39)
[2022-02-28] MEDS ORDERED: OXYC-128 PO (04:39)
--- NOTE | 2022-02-28 04:40 | NUR ---
Patient discharged to home in stable condition. Written and verbal after care instructions given. Patient verbalizes understanding of instructions. Stressed follow up or return to ER for worsening s/s. Patient out of ER with steady gait, no acute signs of distress, VSS, all belongings taken, instructed not to drive, will uber home.
[2022-02-28 04:41] VITALS: BP 121/78
[2022-02-28] MEDS ORDERED: CLINDAMYCIN HCL 150 MG CAPSULE PO ONE (04:45)
[2022-02-28] MEDS ORDERED: METRONIDAZOLE 250 MG TABLET PO ONE (04:45)
[2022-02-28] MEDS ORDERED: OXYCODONE/APAP 5-325 MG TABLET PO ONE (04:45)
== END 2022-02-28 04:47 | disposition home or self-care (01) ==
LOC: ER 04:11
DX: K04.7 Periapical abscess without sinus (principal); N76.0 Acute vaginitis; Z72.0 Tobacco use
CPT/HCPCS: A4663

== ENCOUNTER 2022-05-08 04:10 | Emergency (ER) | payer OTHER ==
[~2022-05-08] VITALS: Ht 165.1 cm; Wt 63.5 kg
[~2022-05-08 04:10] MED LIST changes: +CLIN300C3 PO; +OXYC-128 PO
--- NOTE | 2022-05-08 05:00 | NUR ---
Dr. Cheng at bedside for MSE.
[2022-05-08] MEDS ORDERED: METR500T PO (05:10)
[2022-05-08] MEDS ORDERED: METRONIDAZOLE 500 MG TABLET ONE (05:13)
[2022-05-08] MEDS ORDERED: METRONIDAZOLE 500 MG TABLET PO ONE (05:15)
--- NOTE | 2022-05-08 05:15 | NUR ---
Patient discharged to home in stable condition. Written and verbal after care instructions given. Patient verbalizes understanding of instructions. Stressed follow up or return to ER for worsening s/s. Patient out of ER with steady gait, no acute signs of distress, VSS, all belongings taken.
[2022-05-08 05:16] VITALS: BP 118/82
== END 2022-05-08 05:16 | disposition home or self-care (01) ==
LOC: ER 04:11
DX: N76.0 Acute vaginitis (principal); F17.210 Nicotine dependence, cigarettes, uncomplicated
CPT/HCPCS: A4663

== ENCOUNTER 2022-10-26 07:25 | Emergency (ER) | payer OTHER ==
[~2022-10-26] VITALS: Ht 165.1 cm; Wt 63.5 kg
--- NOTE | 2022-10-26 07:54 | NUR ---
Pt arrived in ED w/ c/o irritation, redness and pain (unable to scale) of the R eye. Pt stated that "probably due to allergies, I keep on touching it". Started last night - per pt. Seen by Dr. Benjamin for MSE.
[2022-10-26] MEDS ORDERED: TETRACAINE HCL 0.5% OPHT DROP 2 ML BOTTLE OP ONE (08:00)
--- NOTE | 2022-10-26 08:04 | NUR ---
Tetracaine drops given by
[2022-10-26] MEDS ORDERED: FLUORESCEIN SODIUM 1 MG STRIP ONE (08:09)
[2022-10-26] MEDS ORDERED: TETRACAINE HCL 0.5% OPHT DROP 2 ML BOTTLE ONE (08:09)
[2022-10-26] MEDS ORDERED: ERYT3.5O24 EACHEYE (08:24)
== END 2022-10-26 08:26 | disposition home or self-care (01) ==
LOC: ER 07:25
DX: H57.11 Ocular pain, right eye (principal); F17.210 Nicotine dependence, cigarettes, uncomplicated; Z88.8 Allergy status to other drugs, medicaments and biological substances; Z91.018 Allergy to other foods
CPT/HCPCS: A4663

== ENCOUNTER 2022-11-12 03:23 | Emergency (ER) | payer OTHER ==
[~2022-11-12] VITALS: Ht 167.6 cm; Wt 59.0 kg
[~2022-11-12 03:23] MED LIST changes: +ERYT3.5O24 EACHEYE
--- NOTE | 2022-11-12 03:41 | NUR ---
seen and examined by Dr. Cheng
--- NOTE | 2022-11-12 03:47 | NUR ---
collected urine and sent to lab
--- NOTE | 2022-11-12 03:55 | NUR ---
Pelvic exam done by Dr. Cheng. Accompanied Dr. Cheng while assessing patient
[2022-11-12 03:57] LABS: *BILIRUBIN,URIN NEGATIVE (NEGATIVE); *BLOOD, URINE 2+ (NEGATIVE); *CLARITY,URINE CLEAR (CLEAR); *COLOR,URINE YELLOW (YELLOW); *KETONES,URINE NEGATIVE (NEGATIVE); *UROBILINOGEN,URINE 0.2 E.U./dl (NORMAL); LEUKOCYTE ESTERASE ,URINE NEGATIVE (NEGATIVE); NITRITE, URINE POSITIVE (NEGATIVE); UGLUCOSE NEGATIVE (NEGATIVE)
[2022-11-12] MEDS ORDERED: METR500T PO (04:03)
[2022-11-12 04:08] LABS: BACTERIA,URINE MANY /HPF (NONE SEEN); SQUAMOUS EPITHELIAL CELL,UR FEW /HPF (NONE SEEN); WBC,URINE NONE SEEN /HPF (0-3)
[2022-11-12 04:30] LABS: HEMATOCRIT 43.8 % (31.2-41.9); MEAN CORPUSCULAR HEMOGLOBIN 30.5 uug (24.7-32.8); MEAN CORPUSCULAR VOLUME 91.1 fL (75.5-95.3); PLATELET COUNT (AUTO) 244 K/uL (179-408)
[2022-11-12 05:06] VITALS: BP 118/78
== END 2022-11-12 05:06 | disposition home or self-care (01) ==
LOC: ER 03:23
DX: N93.9 Abnormal uterine and vaginal bleeding, unspecified (principal); F17.210 Nicotine dependence, cigarettes, uncomplicated; Z87.440 Personal history of urinary (tract) infections
CPT/HCPCS: 36415; 85025; A4663

== ENCOUNTER 2023-03-28 07:34 | Emergency (ER) | payer OTHER ==
[~2023-03-28] VITALS: Ht 165.1 cm; Wt 69.9 kg
[~2023-03-28 07:34] MED LIST changes: +ALBU18HF2 INH
[2023-03-28] MEDS ORDERED: ERYT3.5O24 LEFTEYE (08:13)
--- NOTE | 2023-03-28 08:20 | NUR ---
Pt seen by MD for bedside eval. Safety measures in place. Will continue to monitor.
[2023-03-28 08:36] VITALS: BP 111/79; TEMP 98.6; O2SAT 100
== END 2023-03-28 08:37 | disposition home or self-care (01) ==
LOC: ER 07:34
DX: H10.32 Unspecified acute conjunctivitis, left eye (principal); J45.909 Unspecified asthma, uncomplicated; F17.210 Nicotine dependence, cigarettes, uncomplicated; Z91.018 Allergy to other foods; Z88.8 Allergy status to other drugs, medicaments and biological substances; Z79.2 Long term (current) use of antibiotics; Z79.899 Other long term (current) drug therapy
CPT/HCPCS: A4663

== ENCOUNTER 2023-06-05 03:31 | Emergency (ER) | payer OTHER ==
[~2023-06-05] VITALS: Ht 170.2 cm; Wt 68.0 kg
[~2023-06-05 03:31] MED LIST changes: +ERYT3.5O24 LEFTEYE
[2023-06-05 04:15] LABS: BASOPHILS # (AUTO) 0.1 K/UL (0.0-0.2); BASOPHILS % (AUTO) 1.1 % (0.0-2.0); EOSINOPHILS # (AUTO) 2.1 K/uL (0.0-0.7); LYMPHOCYTES # (AUTO) 2.8 K/uL (0.8-4.8); LYMPHOCYTES % (AUTO) 36.1 % (20.5-51.5); MEAN CORPUSCULAR HEMOGLOBIN 30.8 uug (24.7-32.8); MEAN CORPUSCULAR HGB CONC 34 g/dL (32.3-35.6); MEAN CORPUSCULAR VOLUME 90.6 fL (75.5-95.3); MONOCYTES # (AUTO) 0.4 K/uL (0.1-1.30); MONOCYTES % (AUTO) 4.7 % (0.0-11.0); NEUTROPHILS # (AUTO) 2.5 K/uL (1.8-8.9); NEUTROPHILS % (AUTO) 31.8 % (38.5-71.5); PLATELET COUNT (AUTO) 217 K/uL (179-408); RED BLOOD CELL COUNT(AUTO) 4.86 MIL/uL (3.63-4.92); RED CELL DISTRIBUTION WIDTH 13.3 % (12.3-17.7); WHITE BLOOD COUNT (AUTO) 7.9 K/uL (3.8-11.8)
[2023-06-05 04:16] LABS: *BILIRUBIN,URIN NEGATIVE (NEGATIVE); *COLOR,URINE YELLOW (YELLOW); *KETONES,URINE NEGATIVE (NEGATIVE); *PROTEIN,URINE 1+ (NEGATIVE); *UROBILINOGEN,URINE 0.2 E.U./dl (NORMAL); LEUKOCYTE ESTERASE ,URINE 1+ (NEGATIVE); NITRITE, URINE POSITIVE (NEGATIVE); PH,URINE 5.5 (5.0-8.0); UGLUCOSE NEGATIVE (NEGATIVE)
[2023-06-05 04:29] LABS: *BLOOD, URINE TRACE (NEGATIVE); *CLARITY,URINE CLOUDY (CLEAR)
[2023-06-05 04:30] LABS: CALCIUM 9.4 mg/dL (8.5-10.1); CREATININE 0.9 mg/dL (0.6-1.3); DIFFERENTIAL COMMENT 1; EOSINOPHILS % (AUTO) 26.3 % (0.0-7.0); POTASSIUM 3.5 mmol/L (3.5-5.1)
[2023-06-05 04:35] LABS: ALBUMIN 3.6 g/dL (3.4-5.0); BILIRUBIN,DIRECT 0.1 mg/dL (0.0-0.2); BILIRUBIN,TOTAL 0.6 mg/dL (0.2-1.0); TOTAL PROTEIN, SERUM 6.5 g/dL (6.4-8.2)
[2023-06-05 04:45] LABS: *URINE HCG, QUAL NEGATIVE (NEGATIVE)
[2023-06-05] MEDS ORDERED: NITR100C11 PO (04:57)
[2023-06-05 05:11] LABS: BACTERIA,URINE MANY /HPF (NONE SEEN); SQUAMOUS EPITHELIAL CELL,UR MANY /HPF (NONE SEEN); WBC,URINE 20-50 /HPF (0-3); YEAST,URINE RARE /HPF (NONE SEEN)
[2023-06-05 05:29] LABS: BAND % (MANUAL) 2 % (0-10)
[2023-06-05 05:30] LABS: LYMPHOCYTES % (MANUAL) 35 % (20-40); MONOCYTES % (MANUAL) 5 % (2-10)
[2023-06-05 05:32] LABS: ANISOCYTOSIS 1+; EOSINOPHILS % (MANUAL) 20 % (0-8); NEUTROPHILS % (MANUAL) 38 % (42-75); PLATELET ESTIMATE ADEQUATE
[2023-06-05] MEDS ORDERED: METR-147 PO (05:53)
[2023-06-05 05:59] VITALS: BP 109/75; O2SAT 99
[2023-06-07 09:07] LABS: *TRIC.VAG. NAA Negative (Negative)
[2023-06-08 02:06] LABS: *CHLAMYDIA NAA Negative (Negative); *GC NAA Negative (Negative)
== END 2023-06-05 05:59 | disposition home or self-care (01) ==
LOC: ER 03:36
DX: N39.0 Urinary tract infection, site not specified (principal); N76.0 Acute vaginitis; B96.89 Other specified bacterial agents as the cause of diseases classified elsewhere; J45.909 Unspecified asthma, uncomplicated; F17.210 Nicotine dependence, cigarettes, uncomplicated; Z88.8 Allergy status to other drugs, medicaments and biological substances; Z91.018 Allergy to other foods; Z79.2 Long term (current) use of antibiotics; Z79.899 Other long term (current) drug therapy
CPT/HCPCS: 36415; 70030-TC; 84703; 85025; 87210; 87491; A4606; A4663

== ENCOUNTER 2023-07-24 07:57 | Emergency (ER) | payer OTHER ==
[~2023-07-24] VITALS: Ht 167.6 cm; Wt 54.4 kg
[2023-07-24] MEDS ORDERED: METR-147 PO ×4 (08:14→08:55)
[2023-07-24 08:46] VITALS: BP 118/78; O2SAT 99
== END 2023-07-24 08:46 | disposition home or self-care (01) ==
LOC: ER 07:57
DX: J45.909 Unspecified asthma, uncomplicated (principal); F17.210 Nicotine dependence, cigarettes, uncomplicated; Z76.0 Encounter for issue of repeat prescription; Z88.8 Allergy status to other drugs, medicaments and biological substances; Z91.018 Allergy to other foods; Z79.899 Other long term (current) drug therapy; Z79.2 Long term (current) use of antibiotics
CPT/HCPCS: A4606; A4663

== ENCOUNTER 2023-09-22 01:18 | Emergency (ER) | payer OTHER ==
[~2023-09-22] VITALS: Ht 167.6 cm; Wt 61.2 kg
[2023-09-22] MEDS ORDERED: METR500T PO (02:13)
[2023-09-22] MEDS ORDERED: METRONIDAZOLE 500 MG TABLET PO ONE (02:15)
[2023-09-22] MEDS ORDERED: METRONIDAZOLE 500 MG TABLET ONE (02:16)
[2023-09-22 02:19] VITALS: BP 104/73; O2SAT 99
== END 2023-09-22 02:20 | disposition home or self-care (01) ==
LOC: ER 01:24
DX: N76.0 Acute vaginitis (principal); J45.909 Unspecified asthma, uncomplicated; F17.210 Nicotine dependence, cigarettes, uncomplicated; Z98.890 Other specified postprocedural states; Z79.899 Other long term (current) drug therapy; Z60.2 Problems related to living alone; Z88.1 Allergy status to other antibiotic agents
CPT/HCPCS: A4606; A4663

== ENCOUNTER 2024-01-08 11:46 | Emergency (ER) | payer OTHER ==
[~2024-01-08] VITALS: Ht 167.6 cm; Wt 61.2 kg
[2024-01-08 14:10] VITALS: BP 133/80; TEMP 98; O2SAT 99
== END 2024-01-08 14:10 | disposition home or self-care (01) ==
LOC: ER 11:46
DX: N76.0 Acute vaginitis (principal); F07.81 Postconcussional syndrome; J45.909 Unspecified asthma, uncomplicated; F17.210 Nicotine dependence, cigarettes, uncomplicated; Z98.890 Other specified postprocedural states; Z79.899 Other long term (current) drug therapy; Z88.1 Allergy status to other antibiotic agents
CPT/HCPCS: 70450; A4606; A4663

== ENCOUNTER 2024-02-20 20:21 | Emergency (ER) | payer OTHER | END 2024-02-20 21:15 | disposition home or self-care (01) | LOC: ER 20:22 | DX: A64 Unspecified sexually transmitted disease (principal); Z53.21 Procedure and treatment not carried out due to patient leaving prior to being seen by health care provider ==

== ENCOUNTER 2024-04-12 05:30 | Emergency (ER) | payer OTHER ==
[~2024-04-12] VITALS: Ht 167.6 cm; Wt 63.5 kg
[2024-04-12 05:33] VITALS: O2SAT 98
[2024-04-12] MEDS ORDERED: OXYCODONE/APAP 5-325 MG TABLET ONE (05:58)
[2024-04-12] MEDS ORDERED: ONDANSETRON ODT 4 MG TAB.RAPDIS ONE (05:59)
[2024-04-12] MEDS: OXYCODONE/APAP 5-325 MG TABLET PO ONE (06:01)
[2024-04-12] MEDS: ONDANSETRON ODT 4 MG TAB.RAPDIS SL ONE (06:02)
== END 2024-04-12 07:15 | disposition left against medical advice (07) ==
LOC: ER 05:32
DX: S00.83XA Contusion of other part of head, initial encounter (principal); J45.909 Unspecified asthma, uncomplicated; F17.210 Nicotine dependence, cigarettes, uncomplicated; Z98.890 Other specified postprocedural states; Z79.899 Other long term (current) drug therapy; Z79.51 Long term (current) use of inhaled steroids; Z79.891 Long term (current) use of opiate analgesic; Z60.2 Problems related to living alone; Z88.1 Allergy status to other antibiotic agents; Z91.018 Allergy to other foods; Y04.8XXA Assault by other bodily force, initial encounter; Y93.89 Activity, other specified; Y92.89 Other specified places as the place of occurrence of the external cause; Y99.8 Other external cause status
CPT/HCPCS: 70450; A4606; A4663; Q0162

== ENCOUNTER 2024-05-13 14:02 | Emergency (ER) | payer OTHER ==
[~2024-05-13] VITALS: Ht 154.9 cm; Wt 68.0 kg
[2024-05-13 14:18] VITALS: O2SAT 98
[2024-05-13] MEDS ORDERED: ACET1TAB23 PO (18:09)
[2024-05-13] MEDS ORDERED: SULF1TAB48 PO (18:09)
== END 2024-05-13 18:16 | disposition home or self-care (01) ==
LOC: ER 14:02
DX: S91.332A Puncture wound without foreign body, left foot, initial encounter (principal); J45.909 Unspecified asthma, uncomplicated; F17.200 Nicotine dependence, unspecified, uncomplicated; Z98.890 Other specified postprocedural states; Z79.1 Long term (current) use of non-steroidal anti-inflammatories (NSAID); Z79.899 Other long term (current) drug therapy; Z60.2 Problems related to living alone; Z88.8 Allergy status to other drugs, medicaments and biological substances; W22.8XXA Striking against or struck by other objects, initial encounter; Y93.89 Activity, other specified; Y92.89 Other specified places as the place of occurrence of the external cause; Y99.8 Other external cause status
CPT/HCPCS: 73620; A4606; A4663

== ENCOUNTER 2024-07-20 00:22 | Emergency (ER) | payer OTHER ==
[~2024-07-20] VITALS: Ht 165.1 cm; Wt 68.0 kg
[~2024-07-20 00:22] MED LIST changes: +ACET1TAB23 PO; +SULF1TAB48 PO
[2024-07-20] MEDS: ACETAMINOPHEN 500 MG TABLET PO ONE (01:00)
[2024-07-20 01:08] LABS: *BLOOD, URINE NEGATIVE (NEGATIVE); *CLARITY,URINE CLEAR (CLEAR); *COLOR,URINE YELLOW (YELLOW); *KETONES,URINE TRACE (NEGATIVE); *PROTEIN,URINE NEGATIVE (NEGATIVE); LEUKOCYTE ESTERASE ,URINE TRACE (NEGATIVE); NITRITE, URINE NEGATIVE (NEGATIVE); PH,URINE 6.5 (5.0-8.0); UGLUCOSE NEGATIVE (NEGATIVE)
[2024-07-20 01:24] LABS: *BILIRUBIN,URIN 1+ (NEGATIVE)
[2024-07-20] MEDS ORDERED: NAPR-1009 PO (02:07)
[2024-07-20] MEDS ORDERED: NITR-104 PO (02:07)
[2024-07-20 02:19] LABS: BACTERIA,URINE MODERATE /HPF (NONE SEEN); RBC,URINE 0-3 /HPF (0-3); SQUAMOUS EPITHELIAL CELL,UR FEW /HPF (NONE SEEN)
[2024-07-20 03:20] VITALS: BP 119/78; TEMP 98.4; O2SAT 99
== END 2024-07-20 02:31 | disposition home or self-care (01) ==
LOC: ER 00:24
DX: S22.31XA Fracture of one rib, right side, initial encounter for closed fracture (principal); N39.0 Urinary tract infection, site not specified; M94.0 Chondrocostal junction syndrome [Tietze]; J45.909 Unspecified asthma, uncomplicated; F17.210 Nicotine dependence, cigarettes, uncomplicated; Z79.899 Other long term (current) drug therapy; Z88.7 Allergy status to serum and vaccine; X58.XXXA Exposure to other specified factors, initial encounter; Y93.89 Activity, other specified; Y92.89 Other specified places as the place of occurrence of the external cause; Y99.8 Other external cause status
CPT/HCPCS: 71101; A4606; A4663

== ENCOUNTER 2025-01-17 04:40 | Emergency (ER) | payer OTHER ==
[~2025-01-17] VITALS: Ht 165.1 cm; Wt 59.0 kg
[~2025-01-17 04:40] MED LIST changes: +NAPR-1009 PO; +NITR-104 PO
[2025-01-17] MEDS ORDERED: ERYTHROMYCIN 0.5% OPHT OINT 3.5 GM TUBE ONE (05:58)
[2025-01-17] MEDS ORDERED: METR500T PO (05:58)
[2025-01-17] MEDS ORDERED: METRONIDAZOLE 500 MG TABLET ONE (05:58)
[2025-01-17] MEDS ORDERED: CIPR5DRO EACHEYE (05:58)
[2025-01-17] MEDS: ERYTHROMYCIN 0.5% OPHT OINT 3.5 GM TUBE OP STA (06:05)
[2025-01-17] MEDS: METRONIDAZOLE 500 MG TABLET PO ONE (06:05)
[2025-01-17 06:15] VITALS: BP 110/75; TEMP 97.8; O2SAT 99
== END 2025-01-17 06:15 | disposition home or self-care (01) ==
LOC: ER 04:40
DX: H10.32 Unspecified acute conjunctivitis, left eye (principal); F17.210 Nicotine dependence, cigarettes, uncomplicated; J45.909 Unspecified asthma, uncomplicated; Z88.7 Allergy status to serum and vaccine; Z60.2 Problems related to living alone; Z88.8 Allergy status to other drugs, medicaments and biological substances; Z91.018 Allergy to other foods
CPT/HCPCS: A4606; A4663

== ENCOUNTER 2025-02-15 05:59 | Emergency (ER) | payer OTHER ==
[~2025-02-15] VITALS: Ht 165.1 cm; Wt 65.8 kg
[~2025-02-15 05:59] MED LIST changes: +CIPR5DRO EACHEYE
[2025-02-15 07:19] LABS: BASOPHILS % (AUTO) 0.3 % (0.0-2.0); EOSINOPHILS # (AUTO) 0.3 K/uL (0.0-0.7); HEMATOCRIT 41.6 % (31.2-41.9); HEMOGLOBIN 13.7 g/dL (10.9-14.3); LYMPHOCYTES # (AUTO) 2.6 K/uL (0.8-4.8); LYMPHOCYTES % (AUTO) 37.3 % (20.5-51.5); MEAN CORPUSCULAR HEMOGLOBIN 29.7 uug (24.7-32.8); MEAN CORPUSCULAR HGB CONC 33 g/dL (32.3-35.6); MEAN CORPUSCULAR VOLUME 89.7 fL (75.5-95.3); MONOCYTES # (AUTO) 0.4 K/uL (0.1-1.30); MONOCYTES % (AUTO) 6.1 % (0.0-11.0); NEUTROPHILS # (AUTO) 3.5 K/uL (1.8-8.9); NEUTROPHILS % (AUTO) 51.3 % (38.5-71.5); PLATELET COUNT (AUTO) 209 K/uL (179-408); RED BLOOD CELL COUNT(AUTO) 4.63 MIL/uL (3.63-4.92); RED CELL DISTRIBUTION WIDTH 13.6 % (12.3-17.7); WHITE BLOOD COUNT (AUTO) 6.9 K/uL (3.8-11.8)
[2025-02-15 07:21] LABS: DIFFERENTIAL COMMENT 1
[2025-02-15 07:29] LABS: CALCIUM 8.9 mg/dL (8.5-10.1); CREATININE 1.2 mg/dL (0.6-1.3); POTASSIUM 4.1 mmol/L (3.5-5.1)
[2025-02-15 07:41] LABS: ALBUMIN 3.7 g/dL (3.4-5.0); BILIRUBIN,DIRECT 0.1 mg/dL (0.0-0.2); BILIRUBIN,TOTAL 0.3 mg/dL (0.2-1.0)
[2025-02-15 08:14] VITALS: BP 125/82; O2SAT 99
== END 2025-02-15 08:11 | disposition home or self-care (01) ==
LOC: ER 06:02
DX: S20.211A Contusion of right front wall of thorax, initial encounter (principal); F17.210 Nicotine dependence, cigarettes, uncomplicated; J45.909 Unspecified asthma, uncomplicated; Z88.7 Allergy status to serum and vaccine; Z88.8 Allergy status to other drugs, medicaments and biological substances; Z60.2 Problems related to living alone; X58.XXXA Exposure to other specified factors, initial encounter; Y93.89 Activity, other specified; Y92.89 Other specified places as the place of occurrence of the external cause; Y99.8 Other external cause status
CPT/HCPCS: 36415; 71045; 85025; 85651; 86140; A4606; A4663

== ENCOUNTER 2025-09-01 05:43 | Emergency (ER) | payer OTHER ==
[~2025-09-01] VITALS: Ht 162.6 cm; Wt 65.8 kg
[~2025-09-01 05:43] MED LIST changes: -ACET1TAB23 PO; +ACET1TAB93 PO; -DOXY-326 PO; +DOXY-461 PO; +LEVO-43 PO; -LEVO500T90 PO; -NAPR-1009 PO; +NAPR-1194 PO; -NITR-104 PO; +NITR-165 PO
[2025-09-01 05:50] VITALS: BP 131/87
[2025-09-01 06:59] LABS: PLATELET COUNT (AUTO) 218 K/uL (179-408); RED BLOOD CELL COUNT(AUTO) 4.62 MIL/uL (3.63-4.92); RED CELL DISTRIBUTION WIDTH 13.8 % (12.3-17.7); WHITE BLOOD COUNT (AUTO) 6.5 K/uL (3.8-11.8)
[2025-09-01 07:12] LABS: CREATININE 0.8 mg/dL (0.6-1.3); SODIUM SERUM 141.0 mmol/L (136-145); UREA NITROGEN, BLOOD 15.0 mg/dL (7-18)
[2025-09-01 07:17] LABS: ASPARTATE AMINOTRANSFERASE 18.0 U/L (15-37); TOTAL PROTEIN, SERUM 6.7 g/dL (6.4-8.2)
[2025-09-01] MEDS ORDERED: MAG HYDROX/AL HYDROX/SIMETH 30 ML LIQUID UDC ONE (07:44)
[2025-09-01] MEDS ORDERED: BISA-79 PO (07:53)
[2025-09-01] MEDS ORDERED: MAGN400O6 PO (07:53)
[2025-09-01] MEDS ORDERED: BISA10SU61 RC (07:53)
[2025-09-01] MEDS: MAGNESIUM HYDROXIDE 30 ML LIQUID UDC PO ONE (08:05)
[2025-09-01 08:12] VITALS: BP 131/87; TEMP 208.4; O2SAT 98
== END 2025-09-01 08:12 | disposition home or self-care (01) ==
LOC: ER 05:50
DX: K59.00 Constipation, unspecified (principal); R10.84 Generalized abdominal pain; F17.210 Nicotine dependence, cigarettes, uncomplicated; F19.11 Other psychoactive substance abuse, in remission; J45.909 Unspecified asthma, uncomplicated; Z88.7 Allergy status to serum and vaccine; Z98.891 History of uterine scar from previous surgery
CPT/HCPCS: 36415; 74018; 83690; 85025; A4606; A4663